=== PATIENT | male | born 2000 | race Asian ===

== ENCOUNTER 2023-02-01 15:58 | Inpatient (IN) ==
[2023-02-01 17:37] LABS: Basophils # (auto) 0.05 K/uL (0.00-0.20); Basophils % (auto) 0.6 %; Eosinophils # (auto) 0.31 K/uL (0.00-0.50); Eosinophils % (auto) 3.7 %; Hemoglobin 14.3 g/dl (14.0-18.0); Immature Granulocytes # (auto) 0.02 K/uL (0.01-0.20); Immature Granulocytes % (auto) 0.2 %; Lymphocytes # (auto) 2.46 K/uL (1.20-3.40); Lymphocytes % (auto) 29.6 %; Mean Corpuscular Hemoglobin 29.9 pg (25.0-34.0); Mean Corpuscular Volume 87.7 fL (80.0-100.0); Mean Platelet Volume 9.3 fL (9.4-12.4); Monocytes # (auto) 0.56 K/uL (0.11-0.59); Monocytes % (auto) 6.7 %; Neutrophils # (auto) 4.91 K/uL (1.40-6.50); Neutrophils % (auto) 59.2 %; Platelet Count 346 K/uL (130-400); RDW Coefficient of Variation 11.3 % (11.5-14.5); RDW Standard Deviation 36.6 fL (36.4-46.3); Red Blood Count 4.79 M/uL (4.70-6.10); White Blood Count 8.31 K/ul (4.8-10.8)
[2023-02-01 17:54] LABS: Alanine Aminotransferase 10 U/L (7-52); Albumin Globulin Ratio 1.8 (0.9-2); Albumin Level 4.4 gm/dl (3.4-5.0); Alkaline Phosphatase 66 U/L (34-104); Anion Gap 8 (3-11); Aspartate Aminotransferase 11 U/L (13-39); BUN Creatinine Ratio 18.1 (10-20); Bilirubin,Total 0.4 mg/dl (0.2-1.0); Blood Urea Nitrogen 13 mg/dl (6-23); Carbon Dioxide 22 mmol/L (21-32); Chloride 109 mmol/L (98-107); Creatinine Clr Calc Pharmacy 156.3 ml/min; Est GFR (African American) > 150.0 ml/min; Est GFR (Non-African American) 132.4 ml/min; Globulin 2.5 gm/dl (2.5-4.0); Glucose 108 mg/dl (70-99(Fasting)); Potassium 3.7 mmol/L (3.5-5.1); Sodium 139 mmol/L (136-145); Total Protein 6.9 gm/dl (6.0-8.3)
[2023-02-01] MEDS ORDERED: NICOTINE 14 MG/24 HR PATCH TD SCH (18:00)
[2023-02-01 18:01] LABS: Acetaminophen < 3 ug/ml (10-30); Salicylate < 3.0 mg/dl (3.0-30)
[2023-02-01 18:08] LABS: Thyroid Stimulating Hormone 0.437 uIu/ml (0.300-4.500)
[2023-02-01] MEDS ORDERED: NICOTINE POLACRILEX 2 MG GUM MT PRN (18:19)
--- NOTE | 2023-02-01 18:29 | Emergency Department Note ---
Impression & Plan Passive suicidal ideations, Depression ED Provider Note CHIEF COMPLAINT: Mental health evaluation HISTORY OF PRESENT ILLNESS: This 22year-old male patient with a history of depression presents to the emergency department after a counseling session and was referred to the emergency department for suicidal ideation. The patient states he was on medications last semester, but was not able to get this medicine in [place] over his summer break so just stopped it. He continues in counseling with [facility]. He states he does drink alcohol several times a week. He does smoke cigarettes. He denies any substance abuse otherwise. Patient states he has had thoughts of jumping out of his apartment window which is [address] stories [address] for several weeks. Last night he states he "scared" himself with thoughts of riding his bike into traffic in an effort to kill himself. Patient states he was referred to the emergency department due to a psychiatric crisis. REVIEW OF SYSTEMS: A review of systems was performed with positives and pertinent negatives listed in the history of present illness. 10 systems were reviewed and are otherwise negative. ALLERGIES: see below MEDICATIONS: see below PMH: see below SOCIAL HISTORY: see below DDx: Mood disorder, infection, hypoglycemia, electrolyte abnormalities, cardiac sources, intracerebral event, toxicologic, trauma, neurologic, as well as other pathologies. PHYSICAL EXAM: Vital signs reviewed. General: Well-appearing 22-year-old male, in no significant distress. HEENT: No scleral icterus, PERRLA, neck supple. Moist mucous membrane Cardiovascular: Regular rate and rhythm, no extra sounds. Pulmonary: Clear to auscultation bilaterally, normal work of breathing. Abdomen: Soft, nontender, nondistended, positive bowel sounds. Musculoskeletal: Atraumatic, no peripheral edema. Psych: Positive SI with plan, negative HI Neurologic: Patient awake alert and oriented x 3, speech is clear Skin: Warm, dry, no rash EMERGENCY DEPARTMENT COURSE/MDM: This patient was evaluated and appeared to be in no significant distress. Patient was medically cleared and referred to the mental health casey saw operator for assessment. Patient will require inpatient stay for further psychiatric evaluation and management. He is voluntary at this time. Patient was accepted by [facility] for [facility] care. Please see their notes for further details. DISPOSITION: Admission Past Med/Surg History Medical History Hydrocephalus Depression Social History Smoking Status: Current every day smoker Tobacco Type: Cigarettes and E-cigarettes / Vaping Preferred Language: Maldivian Communication Ability: Effective Edge Roller Required: No Beliefs That Will Affect Care: None Feels Safe at Home: Yes Gender Identity: Male Assistive Devices: Glasses Allergies Allergies Allergy/AdvReac Type Severity Reaction Status Date / Time No Known Allergies Allergy Verified 02/01/23 18:23 Home Meds Home Medications Medication Instructions Recorded Confirmed No Known Home Medications 02/01/23 02/01/23 Results & Data (ED) Vital Signs Vital Signs - 24 hr 02/01/23 15:59 Temperature 36.6 C Temperature Source Temporal Artery Scan Pulse Rate 81 Respiratory Rate 18 Blood Pressure 131/80 Blood Pressure Mean 97 Pulse Oximetry 98 Sepsis Recent Fever Within 48 Hours No Sepsis New/Unexplained Change in Mental Status N/A Sepsis Action Taken by Nursing No Action Required Home Medications Current Medication List: was personally reviewed by me (None) Laboratory Data Attestation: I reviewed the patient's lab results. 02/01/23 17:10 02/01/23 17:10 Lab Results 02/01/23 02/01/23 Range/Units 17:10 18:34 WBC 8.31 (4.8-10.8) K/ul RBC 4.79 (4.70-6.10) M/uL Hgb 14.3 (14.0-18.0) g/dl Hct 42.0 (42.0-52.0) % MCV 87.7 (80.0-100.0) fL MCH 29.9 (25.0-34.0) pg MCHC 34.0 (32.0-36.0) g/dL RDW Std Deviation 36.6 (36.4-46.3) fL RDW Coeff of Agustín 11.3 L (11.5-14.5) % Plt Count 346 (130-400) K/uL MPV 9.3 L (9.4-12.4) fL Immature Gran % (Auto) 0.2 % Neut % (Auto) 59.2 % Lymph % (Auto) 29.6 % O'Brien % (Auto) 6.7 % Eos % (Auto) 3.7 % Baso % (Auto) 0.6 % Neut # (Auto) 4.91 (1.40-6.50) K/uL Lymph # (Auto) 2.46 (1.20-3.40) K/uL O'Brien # (Auto) 0.56 (0.11-0.59) K/uL Eos # (Auto) 0.31 (0.00-0.50) K/uL Baso # (Auto) 0.05 (0.00-0.20) K/uL Immature Gran # (Auto) 0.02 (0.01-0.20) K/uL Sodium 139 (136-145) mmol/L Potassium 3.7 (3.5-5.1) mmol/L Chloride 109 H (98-107) mmol/L Carbon Dioxide 22 (21-32) mmol/L Anion Gap 8 (3-11) BUN 13 (6-23) mg/dl Creatinine 0.72 (0.6-1.4) mg/dl Est Cr Clr Drug Dosing 156.3 ml/min Est GFR ( Amer) > 150.0 ml/min Est GFR (Non-Af Amer) 132.4 ml/min BUN/Creatinine Ratio 18.1 (10-20) Glucose 108 H (70-99(Fasting)) mg/dl Calcium 9.0 (8.6-10.3) mg/dl Total Bilirubin 0.4 (0.2-1.0) mg/dl AST 11 L (13-39) U/L ALT 10 (7-52) U/L Alkaline Phosphatase 66 (34-104) U/L Total Protein 6.9 (6.0-8.3) gm/dl Albumin 4.4 (3.4-5.0) gm/dl Globulin 2.5 (2.5-4.0) gm/dl Albumin/Globulin Ratio 1.8 (0.9-2) TSH 0.437 (0.300-4.500) uIu/ml Urine Color Yellow Urine Appearance Clear (Clear) Urine pH 6.0 (4.5-7.5) Ur Specific [place] 1.027 (1.000-1.030) Urine Protein Negative (Negative) Urine Glucose (UA) Negative (Negative) Urine Ketones Trace H (Negative) Urine Blood Negative (Negative) Urine Nitrite Negative (Negative) Urine Bilirubin Negative (Negative) Urine Urobilinogen Negative (Negative) Ur Leukocyte Esterase Negative (Negative) Salicylates < 3.0 L (3.0-30) mg/dl Urine Opiates Screen Neg (Neg) Ur Methadone, Qual Neg (Neg) Acetaminophen < 3 L (10-30) ug/ml Urine Barbiturates Neg (Neg) Ur Phencyclidine (PCP) Neg (Neg) U Amphetamin/Meth Scrn Neg (Neg) MDMA (Ecstasy) Screen Neg (Neg) U Benzodiazepines Scrn Neg (Neg) Ur Cocaine Metabolite Neg (Neg) U Marijuana (THC) Screen Neg (Neg) Ethyl Alcohol mg/dL < 10.0 (<10.0) mg/dl SARS-CoV-2, RNA, NAAT NEGATIVE (NEGATIVE) Administered Medications Aripiprazole (Aripiprazole 5 Mg Tab) [facility] [place] Stop: 03/04/23 13:04 Last Admin: 02/02/23 14:17 Dose: 2.5 mg Documented By: LAURA Nicotine Polacrilex (Nicotine Polacrilex 2 Mg Gum) 2 piece MT PRN PRN PRN Reason: Nicotine Withdrawal Symptoms Stop: 03/04/23 00:16 Last Admin: 02/02/23 17:45 Dose: 2 piece Documented By: Admin: 02/02/23 13:16 Dose: 2 piece Documented By: LAURA Discontinued Medications Miscellaneous (Remove Nicoderm Patch) 1 each N/A DAILY@[id number] [facility] Stop: 03/04/23 08:58 Last Admin: 02/02/23 09:32 Dose: Not Given Documented By: LAURA Nicotine (Nicotine 14 Mg/24 Hr Patch) 14 mg [facility] Stop: 03/03/23 17:59 Last Admin: 02/01/23 18:20 Dose: Not Given Documented By: MERCED Nicotine (Nicotine 21 Mg/24 Hr Tdsy) 21 mg TD QAM [facility] Stop: 03/04/23 08:59 Last Admin: 02/02/23 09:31 Dose: Not Given Documented By: LAURA Nicotine Polacrilex (Nicotine Polacrilex 2 Mg Gum) 1 piece MT PRN PRN PRN Reason: nicotine withdrawl Stop: 03/03/23 18:18 Last Admin: 02/01/23 18:36 Dose: 1 piece Documented By: MERCED Nicotine Polacrilex (Nicotine Polacrilex 2 Mg Gum) 1 piece MT PRN PRN PRN Reason: Nicotine Withdrawal Symptoms Stop: 03/04/23 00:16 Last Admin: 02/02/23 09:28 Dose: 1 piece Documented By: TLF Discharge Plan Visit Data Chief Complaint: Mental Health Evaluation Stated Complaint: SUICILIDAL THOUGHTS ED Provider: Concetta Peoples Discharge Problem: Passive suicidal ideations, Depression Patient Disposition: Admitted As Inpatient Discharge Instructions Interventions: ED Discharge Assessment Last Done: 02/01/23 23:32 Discharge Problem: Depression Qualifiers: Depression Type: unspecified Qualified Code(s): F32.A - Depression, unspecified
[2023-02-01 18:48] LABS: Appearance Urine Clear (Clear); Bilirubin Urine Negative (Negative); Blood Urine Negative (Negative); Color Urine Yellow; Glucose Urine UA Negative (Negative); Ketones Urine Trace (Negative); Leukocyte Esterase Urine Negative (Negative); Nitrite Urine Negative (Negative); Protein Urine Negative (Negative); Specific Gravity Urine 1.027 (1.000-1.030); Urobilinogen Urine Negative (Negative)
[2023-02-01 19:17] LABS: Amphetamines+Metham, Urine Neg (Neg); Barbiturates, Urine Neg (Neg); Benzodiazepine, Urine Neg (Neg); Cocaine, Urine Neg (Neg); MDMA (Ecstacy), Urine Neg (Neg); Marijuana, Urine Neg (Neg); Methadone, Urine Neg (Neg); Opiate, Urine Neg (Neg); Phencyclidine, Urine Neg (Neg)
[2023-02-02] MEDS ORDERED: MAGNESIUM HYDROXIDE SUSP 30 ML UDC PO PRN (00:17)
[2023-02-02] MEDS ORDERED: SODIUM CHLORIDE 0.65% NA SOLN 45 ML (OCEAN) PRN (00:17)
[2023-02-02] MEDS ORDERED: ACETAMINOPHEN 325 MG TAB PO PRN (00:17)
[2023-02-02] MEDS ORDERED: ALUMINUM/MAGNESIUM SUSP 30 ML UDC PO PRN (00:17)
[2023-02-02] MEDS ORDERED: BISMUTH SUBSALICYLATE LIQD 236 ML PO PRN (00:17)
[2023-02-02] MEDS ORDERED: hydrOXYzine HCl 25 MG TAB PO PRN ×2 (00:17)
[2023-02-02] MEDS ORDERED: NICOTINE POLACRILEX 2 MG GUM MT PRN (00:17)
[2023-02-02] MEDS ORDERED: NICOTINE 21 MG/24 HR TDSY TD SCH (09:00)
[2023-02-02] MEDS: NICOTINE POLACRILEX 2 MG GUM MT PRN ×2 (13:16→17:45)
[2023-02-02] MEDS: ARIPiprazole 5 MG TAB PO SCH (14:17)
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
[2023-02-03 08:03] LABS: Chol HDL Ratio 3.6 (0-5)
[2023-02-03] MEDS: ARIPiprazole 5 MG TAB PO SCH (09:23)
--- NOTE | 2023-02-03 15:00 | Psychiatric Progress Note ---
Date of Service February 03, 2023 Impression / Recommendations Impression 22 yo male with hx of depression, presents with vegetative symptoms, SIB in form of slapping, and thoughts to jump or wreck bike. He has very limited social supports and although unclear if exhibiting PTSD symptoms, seems reactive/intertwined with an unhealthy relationship with a former peer (male). 02/03/2023: Pt was started on aripiprazole 2.5 mg upon admission, which he says he's tolerated without problems. Reports "a little" improvement in mood and "some" reduction in suicidal thoughts which he attributes to the structure and safety of the unit. Reviewed previous medication trials, none of which was of sufficient dose and duration that it could be deemed a true failed trial. Reviewed the rationale for trial of aripiprazole, which he'd like to continue. (1) Major depress dis, severe: Plan The patient was admitted to the [facility] ([facility]) on q15 min checks (behavioral with suicide precautions) for safety. The patient w ill participate in group, recreational, and milieu therapies and will be offered additional individual and family sessions as clinically appropriate. Note: patient reports a history of hydrocephalus in [facility] which required surgery but no shunt. He believes his last head imaging was last year but was unsure where. He denies a history of seizures. He feels he has some baseline coordination difficulties but denies DEXTER, visual changes, and gait is steady without assist here. Follow up with PCP on outpatient basis. No immediate indication for neuro referral. 02/03/2023: * increase aripiprazole to 5 mg QAM - started 02/02/2023 at 2.5 mg * In addition to the screening labs ordered in the ED, will order vitamin B12 level, folic acid level, 25-OH vitamin D level, ESR to rule out conditions mo re pertinent to psychiatric symptoms. 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 Chief Complaint "I'm a little less depressed". Review of Systems Sleep Information Total Hours of Sleep: 6 Sleep Comments: new admit at 2335 Meal Information Percent Meal Consumed - Breakfast: 100 Percent Meal Consumed - Lunch: 100 Percent Meal Consumed - Dinner: 100 Subjective Subjective The patient was seen and assessed and interval progress reviewed in a mult idisciplinary team meeting with the treatment team. For details, see the "Impression" section. Overall I spent a total of 57 minutes for this inpatient follow-up including review of chart records, review of test results, direct evaluation of the patient [id number], counseling the patient, reconciling and ordering medication, medication education with the patient, risk assessment, discussion during interdisciplinary treatment rounds, and documentation in the electronic health record. Physical Exam Psychiatric Orientation: alert and oriented x 3 Apperance: appropriately dressed and appropriately groomed Eye Contact: good eye contact Motor Behavior: no abnormal motor movements Speech: normal rate/rhythm/volume of speech Affect: + depressed affect Mood: + depressed mood Thought Process: + circumstantial thought process Thought Content: reality based without delusions Suicidal Thoughts: denies suicidal intent; + reports suicidal thoughts and + reports suicidal plan Homicidal Thoughts: denies homicidal thoughts Hallucinations: no auditory hallucinations and no visual hallucinations Cognition: attention grossly intact and language grossly intact Estimated Intelligence: consistent with education level Insight: + limited insight Judgment: + limited judgement Vital Signs (Past 24 Hours) Last Vital Signs Temp 36.7 C 02/03/23 06:57 Pulse 99 H 02/03/23 06:57 Resp 18 02/03/23 06:57 BP 93/59 L 02/03/23 06:57 Pulse Ox 96 02/03/23 06:57 O2 Del Method Room Air 02/03/23 06:57 Results & Data (U) Laboratory Results Laboratory Results - last 24 hr 02/03/23 06:58 Fasting Glucose 90 Triglycerides 76 Cholesterol 144 LDL Cholesterol, Calc 89 VLDL Cholesterol, Calc 15 HDL Cholesterol 40 Cholesterol/HDL Ratio 3.6 Current Inpatient Medications Current Inpatient Medications: Current Inpatient Medications Acetaminophen (Acetaminophen 325 Mg Tab) 650 mg PO Q4H PRN PRN Reason: Headache or Minor Fever Stop: 03/04/23 00:16 Al Hydrox/Mg Hydrox/Simethicone (Aluminum/Magnesium Susp 30 Ml Udc) 30 ml PO Q4H PRN PRN Reason: GI Upset Stop: 03/04/23 00:16 Aripiprazole (Aripiprazole 5 Mg Tab) 5 mg PO QAM NALLELY Stop: 03/06/23 08:59 Bismuth Subsalicylate (Bismuth Subsalicylate Liqd 236 Ml) 15 ml PO PRN PRN PRN Reason: Loose Stool Stop: 03/04/23 00:16 Hydroxyzine HCl (Hydroxyzine Hcl 25 Mg Tab) 50 mg PO HSZ PRN PRN Reason: Insomnia Stop: 03/04/23 00:16 Hydroxyzine HCl (Hydroxyzine Hcl 25 Mg Tab) 25 mg PO Q4H PRN PRN Reason: Anxiety Stop: 03/04/23 00:16 Magnesium Hydroxide (Magnesium Hydroxide Susp 30 Ml Udc) 30 ml PO DAILY PRN PRN Reason: Constipation Stop: 03/04/23 00:16 Nicotine Polacrilex (Nicotine Polacrilex 2 Mg Gum) 2 piece MT PRN PRN PRN Reason: Nicotine Withdrawal Symptoms Stop: 03/04/23 00:16 Last Admin: 02/02/23 17:45 Dose: 2 piece Sodium Chloride (Sodium Chloride 0.65% Na Soln 45 Ml ([place])) 1 - 2 sprays NA PRN PRN PRN Reason: Nasal Dryness/Congestion Stop: 03/04/23 00:16 Mental Health & Subst Abuse Tx Psychiatrist Name of Psychiatrist: Linda Bermeo Psychiatrist's Date Of Appointment With Psychiatric Provider: 02/27/2023 Time of Appointment with Psychiatrist: 9:30am Psychiatric Appointment Comment: [address] [place] [address] Therapist Name of Therapist: Herr Rudolph Therapist's Time of Therapist Appointment: follow up after giving break to confirm/schedule next appointment [facility]ment [facility] [place] [place], [address] Credit Card Interviewer Name of Credit Card Interviewer: [employer] Phone Number for Credit Card Interviewer: [phone] Case Management Appointment Comment: Zoom Link will be sent to [employer] email Post Discharge Appointments Primary Care Physician Name Of Family Doctor/PCP: [facility] Primary Care Time of Appointment with PCP: please follow up as needed Provider Appointment Comment: [facility] Contact Information Discharge Discharge Address: [address] [place] [address] [facility] [address], [place] [address] Contact Information Comment: [email or web address]
[2023-02-03] MEDS: NICOTINE POLACRILEX 2 MG GUM MT PRN ×3 (16:12→20:01)
[2023-02-03 17:37] LABS: Folate (Folic Acid),Ser orPlas 3.78 ng/ml (>5.38)
[2023-02-04] MEDS: NICOTINE POLACRILEX 2 MG GUM MT PRN ×3 (07:11→17:55)
[2023-02-04] MEDS ORDERED: ARIPiprazole 5 MG TAB PO SCH (09:00)
[2023-02-04] MEDS: NICOTINE 21 MG/24 HR TDSY TD SCH (11:24)
[2023-02-04] MEDS ORDERED: ERGOCALCIFEROL 50,000 UNITS 1250 MCG CAP PO SCH (14:30)
--- NOTE | 2023-02-04 16:56 | Psychiatric Progress Note ---
Date of Service February 04, 2023 Impression / Recommendations Impression 22 yo male with hx of depression, presents with vegetative symptoms, SIB in form of slapping, and thoughts to jump or wreck bike. He has very limited social supports and although unclear if exhibiting PTSD symptoms, seems reactive/intertwined with an unhealthy relationship with a former peer (male). 02/04/2023: Labs revealed a severe vitamin D deficiency (11.1 ng/mL). Discussed this and the need to treat it at length. Tolerated increase of aripiprazole to 5 mg from 2.5 mg, attributes consistently-improving mood ("about 60%") to this. He would like to continue titration. 02/03/2023: Pt was started on aripiprazole 2.5 mg upon admission, which he says he's tolerated without problems. Reports "a little" improvement in mood and "some" reduction in suicidal thoughts which he attributes to the structure and safety of the unit. Reviewed previous medication trials, none of which was of sufficient dose and duration that it could be deemed a true failed trial. Reviewed the rationale for trial of aripiprazole, which he'd like to continue. (1) Major depressive disorder, recurrent, severe without psychotic features: (2) Vitamin D deficiency: Plan The patient was admitted to the [facility] ([facility]) on q15 min checks (behavioral with suicide precautions) for safety. The patient will participate in group, recreational, and milieu therapies and will be offered additional individual and family sessions as clinically appropriate. Note: patient reports a history of hydrocephalus in childhood which required surgery but no shunt. He believes his last head imaging was last year but was unsure where. He denies a history of seizures. He feels he has some baseline coordination difficulties but denies DEXTER, visual changes, and gait is steady without assist here. Follow up with PCP on outpatient basis. No immediate indication for neuro referral. 02/03/2023: * increase aripiprazole to 7.5 mg QAM - increased 02/03/2023 to 5 mg, started 02/02/2023 at 2.5 mg * start ergocalciferol 50,000 IU twice weekly 02/03/2023: * increase aripiprazole to 5 mg QAM - started 02/02/2023 at 2.5 mg * In addition to the screening labs ordered in the ED, will order vitamin B12 level, folic acid level, 25-OH vitamin D level, ESR to rule out conditions more pertinent to psychiatric symptoms. 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 Chief Complaint "Not so bad". Review of Systems Sleep Information Total Hours of Sleep: 6.75 Sleep Comments: new admit at 2335 Meal Information Percent Meal Consumed - Breakfast: 100 Percent Meal Consumed - Lunch: 100 Percent Meal Consumed - Dinner: 100 Subjective Subjective The patient was seen and assessed and interval progress reviewed in a multidisciplinary team meeting with the treatment team. For details, see the "Impression" section. Overall I spent a total of 62 minutes for this inpatient follow-up including review of chart records, review of test results, direct evaluation of the patient [id number], counseling the patient, reconciling and ordering medication, medication education with the patient, risk assessment, discussion during interdisciplinary treatment rounds, and documentation in the electronic health record. Physical Exam Psychiatric Orientation: alert Apperance: appropriately dressed and appropriately groomed Eye Contact: good eye contact Motor Behavior: no abnormal motor movements Speech: normal rate/rhythm/volume of speech Affect: + depressed affect Mood: + depressed mood Thought Process: + circumstantial thought process Thought Content: reality based without delusions Suicidal Thoughts: denies suicidal intent; + reports suicidal thoughts and + reports suicidal plan Homicidal Thoughts: denies homicidal thoughts Hallucinations: no auditory hallucinations and no visual hallucinations Cognition: attention grossly intact and language grossly intact Estimated Intelligence: consistent with education level Insight: + limited insight Judgment: + limited judgement Vital Signs (Past 24 Hours) Last Vital Signs Temp 36.9 C 02/04/23 06:00 Pulse 78 02/04/23 07:02 Resp 16 02/04/23 06:00 BP 92/66 L 12/10/23 07:02 Pulse Ox 96 02/03/23 06:57 O2 Del Method Room Air 02/03/23 06:57 Results & Data ([facility]) Laboratory Results Laboratory Results - last 24 hr 02/03/23 16:25 ESR 1 Vitamin B12 299 25-OH Vitamin D Total 11.1 L Folate 3.78 L Current Inpatient Medications Current Inpatient Medications: Current Inpatient Medications Acetaminophen (Acetaminophen 325 Mg Tab) 650 mg PO Q4H PRN PRN Reason: Headache or Minor Fever Stop: 03/04/23 00:16 Al Hydrox/Mg Hydrox/Simethicone (Aluminum/Magnesium Susp 30 Ml Udc) 30 ml PO Q4H PRN PRN Reason: GI Upset Stop: 03/04/23 00:16 Aripiprazole (Aripiprazole 5 Mg Tab) [facility] Stop: 03/07/23 08:59 Bismuth Subsalicylate (Bismuth Subsalicylate Liqd 236 Ml) 15 ml PO PRN PRN PRN Reason: Loose Stool Stop: 03/04/23 00:16 Ergocalciferol (Ergocalciferol 50,000 Units 1250 Mcg Cap) 50,000 units PO SuWe@1430 [facility] Stop: 03/06/23 14:29 Last Admin: 02/04/23 15:31 Dose: 50,000 units Folic Acid (Folic Acid 1 Mg Tab) [facility] Stop: 03/06/23 16:59 Hydroxyzine HCl (Hydroxyzine Hcl 25 Mg Tab) 50 mg PO HSZ PRN PRN Reason: Insomnia Stop: 03/04/23 00:16 Hydroxyzine HCl (Hydroxyzine Hcl 25 Mg Tab) 25 mg PO Q4H PRN PRN Reason: Anxiety Stop: 03/04/23 00:16 Magnesium Hydroxide (Magnesium Hydroxide Susp 30 Ml Udc) 30 ml PO DAILY PRN PRN Reason: Constipation Stop: 03/04/23 00:16 Miscellaneous (Remove Nicoderm Patch) 1 each N/A DAILY@0859 [facility] Stop: 03/07/23 08:58 Nicotine (Nicotine 21 Mg/24 Hr Tdsy) 21 mg TD QAM [facility] Stop: 03/06/23 10:59 Last Admin: 02/04/23 11:24 Dose: 21 mg Nicotine Polacrilex (Nicotine Polacrilex 2 Mg Gum) 2 piece MT PRN PRN PRN Reason: Nicotine Withdrawal Symptoms Stop: 03/04/23 00:16 Last Admin: 02/04/23 09:15 Dose: 2 piece Sodium Chloride (Sodium Chloride 0.65% Na Soln 45 Ml ([place])) 1 - 2 sprays NA PRN PRN PRN Reason: Nasal Dryness/Congestion Stop: 03/04/23 00:16 Mental Health & Subst Abuse Tx Psychiatrist Name of Psychiatrist: Linda Bermeo Psychiatrist's Date Of Appointment With Psychiatric Provider: 02/27/2023 Time of Appointment with Psychiatrist: 9:30am Psychiatric Appointment Comment: [address] [place] [address] Therapist Name of Therapist: Herr Rudolph Therapist's Time of Therapist Appointment: follow up after thanksgiving break to confirm/schedule next appointment Therapy Appointment Comment: [address] [facility] [place], [address] Forestry Professor Name of Forestry Professor: [employer] Phone Number for Forestry Professor: [phone] Case Management Appointment Comment: Zoom Link will be sent to [facility] email Post Discharge Appointments Primary Care Physician Name Of Family Doctor/PCP: [facility] Primary Care Time of Appointment with PCP: please follow up as needed Provider Appointment Comment: [facility] Contact Information Discharge Discharge Address: [address] [place] [address] [address], [place] [address] Contact Information Comment: [email or web address]
[2023-02-04] MEDS: FOLIC ACID 1 MG TAB PO SCH (18:12)
[2023-02-05] MEDS: FOLIC ACID 1 MG TAB PO SCH (09:13)
[2023-02-05] MEDS: ARIPiprazole 5 MG TAB PO SCH (09:13)
[2023-02-05] MEDS: NICOTINE 21 MG/24 HR TDSY TD SCH (09:14)
--- NOTE | 2023-02-05 10:34 | Psychiatric Progress Note ---
Date of Service February 05, 2023 Impression / Recommendations Impression 22 yo male with hx of depression, presents with vegetative symptoms, SIB in form of slapping, and thoughts to jump or wreck bike. He has very limited social supports and although unclear if exhibiting PTSD symptoms, seems reactive/intertwined with an unhealthy relationship with a former peer (male). 02/05/2023: Now on replacement for both vitamin D and folic acid. Pt reports "a little" improvement in mood, now rating his mood as "70%" of normal. He has titrated 7.5 mg aripiprazole with no attributed adverse effects and would like to maintain the current dose. Presents as somewhat hyperviscous with difficulty changing focus and at least 4 "just one" or "last" questions. 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 Says he wants to "stay here as long as possible" but has trouble articulating reasons for that. 02/04/2023: Labs revealed a severe vitamin D deficiency (11.1 ng/mL). Discussed this and the need to treat it at length. Tolerated increase of aripiprazole to 5 mg from 2.5 mg, attributes consistently-improving mood ("about 60%") to this. He would like to continue titration. 02/03/2023: Pt was started on aripiprazole 2.5 mg upon admission, which he says he's tolerated without problems. Reports "a little" improvement in mood and "some" reduction in suicidal thoughts which he attributes to the structure and safety of the unit. Reviewed previous medication trials, none of which was of sufficient dose and duration that it could be deemed a true failed trial. Reviewed the rationale for trial of aripiprazole, which he'd like to continue. (1) Major depressive disorder, recurrent, severe without psychotic features: (2) Vitamin D deficiency: (3) Folic acid deficiency: Plan The patient was admitted to the [facility] ([facility]) on q15 min checks (behavioral with suicide precautions) for safety. The patient will participate in group, recreational, and milieu therapies and will be offered additional individual and family sessions as clinically appropriate. Note: patient reports a history of hydrocephalus in childhood which required surgery but no shunt. He believes his last head imaging was last year but was unsure where. He denies a history of seizures. He feels he has some baseline coordination difficulties but denies DEXTER, visual changes, and gait is steady without assist here. Follow up with PCP on outpatient basis. No immediate indication for neuro referral. 02/05/2023: * continue aripiprazole 7.5 mg QAM - increased 02/04/2023, increased 02/03/2023 to 5 mg, started 02/02/2023 at 2.5 mg * continue ergocalciferol 50,000 IU twice weekly * continue folic acid 1 mg daily 02/04/2023: * increase aripiprazole to 7.5 mg QAM - increased 02/03/2023 to 5 mg, started 02/02/2023 at 2.5 mg * start ergocalciferol 50,000 IU twice weekly * start folic acid 1 mg daily 02/03/2023: * increase aripiprazole to 5 mg QAM - started 02/02/2023 at 2.5 mg * In addition to the screening labs ordered in the ED, will order vitamin B12 level, folic acid level, 25-OH vitamin D level, ESR to rule out conditions more pertinent to psychiatric symptoms. 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 Chief Complaint "Things seem a little better". Review of Systems Sleep Information Total Hours of Sleep: 6 Sleep Comments: Pt up once to BR Meal Information Percent Meal Consumed - Breakfast: 100 Percent Meal Consumed - Lunch: 100 Percent Meal Consumed - Dinner: 100 Subjective Subjective The patient was seen and assessed and interval progress reviewed in a multidisciplinary team meeting with the treatment team. For details, see the "Impression" section. Overall I spent a total of 57 minutes for this inpatient follow-up including review of chart records, direct evaluation of the patient [id number], counseling the patient, reconciling and ordering medication, medication education with the patient, risk assessment, discussion during interdisciplinary treatment rounds, and documentation in the electronic health record. Physical Exam Psychiatric Orientation: alert Apperance: appropriately dressed and appropriately groomed Eye Contact: good eye contact Motor Behavior: no abnormal motor movements Speech: normal rate/rhythm/volume of speech Affect: + depressed affect Mood: + depressed mood Thought Process: + circumstantial thought process Thought Content: reality based without delusions Suicidal Thoughts: denies suicidal intent; + reports suicidal thoughts and + reports suicidal plan Homicidal Thoughts: denies homicidal thoughts Hallucinations: no auditory hallucinations and no visual hallucinations Cognition: attention grossly intact and language grossly intact Estimated Intelligence: consistent with education level Insight: + limited insight Judgment: + limited judgement Vital Signs (Past 24 Hours) Last Vital Signs Temp 36.4 C 02/05/23 06:55 Pulse 90 02/05/23 06:55 Resp 16 02/05/23 06:55 BP 101/67 02/05/23 06:55 Pulse Ox 97 02/05/23 06:55 O2 Del Method Room Air 02/05/23 06:55 Results & Data ([facility]) Current Inpatient Medications Current Inpatient Medications: Current Inpatient Medications Acetaminophen (Acetaminophen 325 Mg Tab) 650 mg PO Q4H PRN PRN Reason: Headache or Minor Fever Stop: 03/04/23 00:16 Al Hydrox/Mg Hydrox/Simethicone (Aluminum/Magnesium Susp 30 Ml Udc) 30 ml PO Q4H PRN PRN Reason: GI Upset Stop: 03/04/23 00:16 Aripiprazole (Aripiprazole 5 Mg Tab) 7.5 mg PO QAM [facility] Stop: 03/07/23 08:59 Last Admin: 02/05/23 09:13 Dose: 7.5 mg Bismuth Subsalicylate (Bismuth Subsalicylate Liqd 236 Ml) 15 ml PO PRN PRN PRN Reason: Loose Stool Stop: 03/04/23 00:16 Ergocalciferol (Ergocalciferol 50,000 Units 1250 Mcg Cap) 50,000 units PO SuWe@1430 [facility] Stop: 03/06/23 14:29 Last Admin: 02/04/23 15:31 Dose: 50,000 units Folic Acid (Folic Acid 1 Mg Tab) 1 mg PO QAM [facility] Stop: 03/06/23 16:59 Last Admin: 02/05/23 09:13 Dose: 1 mg Hydroxyzine HCl (Hydroxyzine Hcl 25 Mg Tab) 50 mg PO HSZ PRN PRN Reason: Insomnia Stop: 03/04/23 00:16 Hydroxyzine HCl (Hydroxyzine Hcl 25 Mg Tab) 25 mg PO Q4H PRN PRN Reason: Anxiety Stop: 03/04/23 00:16 Magnesium Hydroxide (Magnesium Hydroxide Susp 30 Ml Udc) 30 ml PO DAILY PRN PRN Reason: Constipation Stop: 03/04/23 00:16 Last Admin: 02/05/23 09:14 Dose: 30 ml Miscellaneous (Remove Nicoderm Patch) 1 each N/A DAILY@0859 [facility] Stop: 03/07/23 08:58 Last Admin: 02/05/23 09:28 Dose: 1 each Nicotine (Nicotine 21 Mg/24 Hr Tdsy) 21 mg TD QAM [facility] Stop: 03/06/23 10:59 Last Admin: 02/05/23 09:14 Dose: 21 mg Nicotine Polacrilex (Nicotine Polacrilex 2 Mg Gum) 2 piece MT PRN PRN PRN Reason: Nicotine Withdrawal Symptoms Stop: 03/04/23 00:16 Last Admin: 02/04/23 17:55 Dose: 2 piece Sodium Chloride (Sodium Chloride 0.65% Na Soln 45 Ml ([place])) 1 - 2 sprays NA PRN PRN PRN Reason: Nasal Dryness/Congestion Stop: 03/04/23 00:16 Mental Health & Subst Abuse Tx Psychiatrist Name of Psychiatrist: Linda Bermeo Psychiatrist's Date Of Appointment With Psychiatric Provider: 02/27/2023 Time of Appointment with Psychiatrist: 9:30am Psychiatric Appointment Comment: [address] [place] [address] Therapist Name of Therapist: Herr Rudolph Therapist's Time of Therapist Appointment: follow up after giving break to confirm/schedule next appointment Therapy Appointment Comment: [facility] [place], [address] Ems Instructor Name of Ems Instructor: [employer] [facility] [employer] Phone Number for Ems Instructor: [phone] Case Management Appointment Comment: Zoom Link will be sent to [facility] email Post Discharge Appointments Primary Care Physician Name Of Family Doctor/PCP: [facility] Primary Care Time of Appointment with PCP: please follow up as needed Provider Appointment Comment: [facility] Contact Information Discharge Discharge Address: [address] [place] [address] [facility] [address], [place] [address] Contact Information Comment: [email or web address]
[2023-02-05] MEDS: NICOTINE POLACRILEX 2 MG GUM MT PRN ×2 (14:27→20:18)
[2023-02-06] MEDS: FOLIC ACID 1 MG TAB PO SCH (09:36)
[2023-02-06] MEDS: ARIPiprazole 5 MG TAB PO SCH (09:36)
[2023-02-06] MEDS: NICOTINE 21 MG/24 HR TDSY TD SCH (09:39)
--- NOTE | 2023-02-06 12:14 | Psychiatric Progress Note ---
Date of Service February 06, 2023 Impression / Recommendations Impression 22 yo male with hx of depression, presents with vegetative symptoms, SIB in form of slapping, and thoughts to jump or wreck bike. He has very limited social supports and although unclear if exhibiting PTSD symptoms, seems reactive/intertwined with an unhealthy relationship with a former peer (male). 02/06/2023: Today rates his mood at "80%" of baseline. He does not attribute any side effects to aripiprazole but reports fatigue in the late afternoon/early evening (and visibly yawns a lot around then). I remined him that he has a severe vitamin D deficiency as well as a folic acid deficiency and that fatigue is one of the most common symptoms of each. He abruptly asked what I "thought about coffee". It transpires that he's been drinking 1.65 L of caffeinated coffee every day (550 mL water mug filled to that measure line 3 times every morning). I told him that likely means he's consuming at least 1,375 mg of caffeine every morning, vs. a recommended intake of 400-500 mg/day. Discussed caffeine rebound and withdrawal. Suggested he keep coffee intake constant and taper the ratio of caffeinated to decaf. Pt thinks his mood is "really not bad" and we agreed to maintain the current aripiprazole regimen. 02/05/2023: Now on replacement for both vitamin D and folic acid. Pt reports "a little" improvement in mood, now rating his mood as "70%" of normal. He has titrated 7.5 mg aripiprazole with no attributed adverse effects and would like to maintain the current dose. Presents as somewhat hyperviscous with difficulty changing focus and at least 4 "just one" or "last" questions. 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 Says he wants to "stay here as long as possible" but has trouble articulating reasons for that. 02/04/2023: Labs revealed a severe vitamin D deficiency (11.1 ng/mL). Discussed this and the need to treat it at length. Tolerated increase of aripiprazole to 5 mg from 2.5 mg, attributes consistently-improving mood ("about 60%") to this. He would like to continue titration. 02/03/2023: Pt was started on aripiprazole 2.5 mg upon admission, which he says he's tolerated without problems. Reports "a little" improvement in mood and "some" reduction in suicidal thoughts which he attributes to the structure and safety of the unit. Reviewed previous medication trials, none of which was of sufficient dose and duration that it could be deemed a true failed trial. Reviewed the rationale for trial of aripiprazole, which he'd like to continue. (1) Major depressive disorder, recurrent, severe without psychotic features: (2) Vitamin D deficiency: (3) Folic acid deficiency: Plan The patient was admitted to the [facility] ([facility]) on q15 min checks (behavioral with suicide precautions) for safety. The patient will participate in group, recreational, and milieu therapies and will be offered additional individual and family sessions as clinically appropriate. Note: patient reports a history of hydrocephalus in childhood which required surgery but no shunt. He believes his last head imaging was last year but was unsure where. He denies a history of seizures. He feels he has some baseline coordination difficulties but denies DEXTER, visual changes, and gait is steady without assist here. Follow up with PCP on outpatient basis. No immediate indication for neuro referral. 02/05/2023: * continue aripiprazole 7.5 mg QAM - increased 02/04/2023, increased 02/03/2023 to 5 mg, started 02/02/2023 at 2.5 mg * continue ergocalciferol 50,000 IU twice weekly * continue folic acid 1 mg daily * taper caffeine intake by altering ratio of caffeinated to decaffeinated coffee with target of 400-500 mg daily caffeine intake (with average 240 mL mug of filtered drip coffee containing 200-250 mg) 02/05/2023: * continue aripiprazole 7.5 mg QAM - increased 02/04/2023, increased 02/03/2023 to 5 mg, started 02/02/2023 at 2.5 mg * continue ergocalciferol 50,000 IU twice weekly * continue folic acid 1 mg daily 02/04/2023: * increase aripiprazole to 7.5 mg QAM - increased 02/03/2023 to 5 mg, started 02/02/2023 at 2.5 mg * start ergocalciferol 50,000 IU twice weekly * start folic acid 1 mg daily 02/03/2023: * increase aripiprazole to 5 mg QAM - started 02/02/2023 at 2.5 mg * In addition to the screening labs ordered in the ED, will order vitamin B12 level, folic acid level, 25-OH vitamin D level, ESR to rule out conditions more pertinent to psychiatric symptoms. 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 Chief Complaint "A little better every day". Review of Systems Sleep Information Total Hours of Sleep: 6.5 Sleep Comments: Pt up once to BR Meal Information Percent Meal Consumed - Breakfast: 100 Percent Meal Consumed - Lunch: 100 Percent Meal Consumed - Dinner: 100 Subjective Subjective The patient was seen and assessed and interval progress reviewed in a multidisciplinary team meeting with the treatment team. For details, see the "Impression" section. Overall I spent a total of 39 minutes for this inpatient follow-up including review of chart records, direct evaluation of the patient [id number], counseling the patient, medication education with the patient, risk assessment, discussion during interdisciplinary treatment rounds, and documentation in the electronic health record. Physical Exam Psychiatric Orientation: alert Apperance: appropriately dressed and appropriately groomed Eye Contact: good eye contact Motor Behavior: no abnormal motor movements Speech: normal rate/rhythm/volume of speech Affect: + depressed affect Mood: + depressed mood Thought Process: + circumstantial thought process Thought Content: reality based without delusions Suicidal Thoughts: denies suicidal intent; + reports suicidal thoughts and + reports suicidal plan Homicidal Thoughts: denies homicidal thoughts Hallucinations: no auditory hallucinations and no visual hallucinations Cognition: attention grossly intact and language grossly intact Estimated Intelligence: consistent with education level Insight: + limited insight Judgment: + limited judgement Vital Signs (Past 24 Hours) Last Vital Signs Temp 36.4 C L 02/06/23 06:35 Pulse 91 H 02/06/23 06:36 Resp 16 02/06/23 06:35 BP 97/64 L 02/06/23 06:36 Pulse Ox 97 02/05/23 06:55 O2 Del Method Room Air 02/05/23 06:55 Results & Data ([facility]) Current Inpatient Medications Current Inpatient Medications: Current Inpatient Medications Acetaminophen (Acetaminophen 325 Mg Tab) 650 mg PO Q4H PRN PRN Reason: Headache or Minor Fever Stop: 03/04/23 00:16 Al Hydrox/Mg Hydrox/Simethicone (Aluminum/Magnesium Susp 30 Ml Udc) 30 ml PO Q4H PRN PRN Reason: GI Upset Stop: 03/04/23 00:16 Aripiprazole (Aripiprazole 5 Mg Tab) [facility] Stop: 03/07/23 08:59 Last Admin: 02/06/23 09:36 Dose: 7.5 mg Bismuth Subsalicylate (Bismuth Subsalicylate Liqd 236 Ml) 15 ml PO PRN PRN PRN Reason: Loose Stool Stop: 03/04/23 00:16 Ergocalciferol (Ergocalciferol 50,000 Units 1250 Mcg Cap) 50,000 units PO SuWe@1430 [facility] Stop: 03/06/23 14:29 Last Admin: 02/04/23 15:31 Dose: 50,000 units Folic Acid (Folic Acid 1 Mg Tab) 1 mg PO QAM [facility] Stop: 03/06/23 16:59 Last Admin: 02/06/23 09:36 Dose: 1 mg Hydroxyzine HCl (Hydroxyzine Hcl 25 Mg Tab) 50 mg PO HSZ PRN PRN Reason: Insomnia Stop: 03/04/23 00:16 Hydroxyzine HCl (Hydroxyzine Hcl 25 Mg Tab) 25 mg PO Q4H PRN PRN Reason: Anxiety Stop: 03/04/23 00:16 Magnesium Hydroxide (Magnesium Hydroxide Susp 30 Ml Udc) 30 ml PO DAILY PRN PRN Reason: Constipation Stop: 03/04/23 00:16 Last Admin: 02/05/23 09:14 Dose: 30 ml Miscellaneous (Remove Nicoderm Patch) 1 each N/A DAILY@0859 [facility] Stop: 03/07/23 08:58 Last Admin: 02/06/23 09:38 Dose: 1 each Nicotine (Nicotine 21 Mg/24 Hr Tdsy) 21 mg TD QAM [facility] Stop: 03/06/23 10:59 Last Admin: 02/06/23 09:39 Dose: 21 mg Nicotine Polacrilex (Nicotine Polacrilex 2 Mg Gum) 2 piece MT PRN PRN PRN Reason: Nicotine Withdrawal Symptoms Stop: 03/04/23 00:16 Last Admin: 02/05/23 20:18 Dose: 2 piece Sodium Chloride (Sodium Chloride 0.65% Na Soln 45 Ml ([place])) 1 - 2 sprays NA PRN PRN PRN Reason: Nasal Dryness/Congestion Stop: 03/04/23 00:16 Mental Health & Subst Abuse Tx Psychiatrist Name of Psychiatrist: Linda Bermeo Psychiatrist's Date Of Appointment With Psychiatric Provider: 02/27/2023 Time of Appointment with Psychiatrist: 9:30am Psychiatric Appointment Comment: [address] [place] [address] Therapist Name of Therapist: Herr Rudolph Therapist's Time of Therapist Appointment: follow up after giving break to confirm/schedule next appointment Therapy Appointment Comment: [address] [place] [address], [place], [address] Qi Specialist Name of Qi Specialist: [employer] Phone Number for Qi Specialist: [phone] Case Management Appointment Comment: Zoom Link will be sent to [facility] email Post Discharge Appointments Primary Care Physician Name Of Family Doctor/PCP: [facility] Primary Care Time of Appointment with PCP: please follow up as needed Provider Appointment Comment: [facility] Contact Information Discharge Discharge Address: [address] [place] [address] [address], [place] [address] Contact Information Comment: [email or web address]
[2023-02-06] MEDS: NICOTINE POLACRILEX 2 MG GUM MT PRN (19:18)
[2023-02-07] MEDS: ARIPiprazole 5 MG TAB PO SCH (09:04)
[2023-02-07] MEDS: FOLIC ACID 1 MG TAB PO SCH (09:05)
[2023-02-07] MEDS: NICOTINE 21 MG/24 HR TDSY TD SCH (09:05)
[2023-02-07] MEDS: NICOTINE POLACRILEX 2 MG GUM MT PRN (09:06)
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
== END 2023-02-07 13:50 | disposition home or self-care (01) | DRG 885 ==
LOC: ED 15:58 → 3S 23:11